=== PATIENT | male | born 1965 | race Caucasian/White ===

== ENCOUNTER 2020-12-17 12:06 | Emergency (ER) | payer OTHER ==
[2020-12-17] MEDS: Diphtheria,Pertussis(Acell),Tetanus Vaccine 0.5 ML Syringe IM ONE (12:23)
[2020-12-17] MEDS: Lidocaine 1% 30 ML SDV INJECT ONE (12:35)
--- NOTE | 2020-12-17 13:48 | EDM.PDOC ---
ED HPI GENERAL MEDICAL PROBLEM - General Stated Complaint: laceration right forearm Time Seen by Provider: 12/17/20 12:10 Source of Information: Reports: Patient, Family, RN, RN Notes Reviewed - History of Present Illness INITIAL COMMENTS - FREE TEXT/NARRATIVE: Patient is a 55-year-old male who presents to ER with complaint of laceration to the right forearm. States he was stepping out of a tool van, stepped down to the first step and states he slipped off of it and fell. States he was wearing a sweatshirt and a jacket. States he was also wearing a hard hat, states he may have bumped his head but does not remember hitting his head and did not get knocked out. Patient denies any pain except for on the right forearm and the left thumb. Patient able to move all appendages well, able to move fingers well no numbness or tingling. Patient is unsure of when his last tetanus vaccination was, states he thinks he probably needs an update. Onset: Today, Sudden ED ROS GENERAL - Review of Systems Review Of Systems: Comprehensive ROS is negative, except as noted in HPI. ED EXAM, SKIN/RASH Exam: See Below Exam Limited By: No Limitations General Appearance: Alert, WD/WN, No Apparent Distress, Anxious Eye Exam: Bilateral Eye: EOMI, Normal Inspection Ears: Normal External Exam, Hearing Loss Nose: Normal Inspection, Normal Mucosa Throat/Mouth: Normal Inspection, Normal Lips, Normal Teeth, Normal Gums, Normal Oropharynx, Normal Voice, No Airway Compromise Head: Atraumatic, Normocephalic Neck: Normal Inspection, Supple, Non-Tender, Full Range of Motion Respiratory/Chest: No Respiratory Distress, Lungs Clear, Normal Breath Sounds, No Accessory Muscle Use, Chest Non-Tender Cardiovascular: Normal Peripheral Pulses, Regular Rate, Rhythm, No Edema, No Gallop, No JVD, No Murmur, No Rub Peripheral Pulses: 2+: Radial (L), Radial (R) GI/Abdominal: Normal Bowel Sounds, Soft, Non-Tender (Male) Exam: Deferred Rectal (Males) Exam: Deferred Back Exam: Normal Inspection, Full Range of Motion, NT Extremities: Normal Inspection, Normal Range of Motion, Non-Tender, No Pedal Edema, Normal Capillary Refill Neurological: Alert, Oriented, CN II-XII Intact, Normal Cognition, Normal Gait, Normal Reflexes, No Motor/Sensory Deficits Psychiatric: Normal Affect, Normal Mood, Anxious Skin: Warm, Dry, Normal Color, No Rash Location, Skin: Upper Extremity, Right, Lower Extremity, Left Lymphatic: No Adenopathy ED SKIN PROCEDURES - Laceration/Wound Repair Right Lateral Distal Arm Appearance: Subcutaneous, Muscle Distal NVT: Neuro & Vascular Intact Anesthetic Type: Local Local Anesthesia - Lidocaine (Xylocaine): 1% Plain Local Anesthetic Volume: Other (17) Skin Prep: Chlorhexidine (Hibiciens) Exploration/Debridement/Repair: Wound Explored, In a Bloodless Field, Explored to Base, No Foreign Material Found, Wound Margins Revised, Multiple Flaps Aligned Closed with: Sutures Lac/Wound length In cm: 17 Suture Size: 4-0 # of Sutures: 20 Suture Type: Nylon, Interrupted Drain Placement: No Sterile Dressing Applied: Nurse Complications: No Left Ventral Digit - 1st (Thumb) Appearance: Subcutaneous Distal NVT: Neuro & Vascular Intact Anesthetic Type: Digital Local Anesthetic Volume: 2cc Skin Prep: Chlorhexidine (Hibiciens) Exploration/Debridement/Repair: Wound Explored, In a Bloodless Field, Explored to Base, No Foreign Material Found Closed with: Sutures Lac/Wound length In cm: 1.5 Suture Size: 4-0 # of Sutures: 3 Suture Type: Nylon, Interrupted Drain Placement: No Sterile Dressing Applied: Nurse Tetanus Status Addressed: Yes Complications: No Course - Orders/Labs/Meds Orders: Active Orders 24 hr Category Date Time Status Vaccines to be Administered [RC] PER UNIT ROUTINE Care 12/17/20 12:20 Active Meds: Medications Discontinued Medications Generic Name Dose Route Start Last Admin Trade Name Freq PRN Reason Stop Dose Admin Diphtheria/Tetanus/Acell Pertussis 0.5 ml 12/17/20 12:19 12/17/20 12:23 Diphtheria,Pertussis(Acell),Tetanus Vaccine 0.5 Ml Syringe IM 12/17/20 12:20 0.5 ml .ONCE ONE Administration Lidocaine HCl 30 ml 12/17/20 12:24 Lidocaine 1% 30 Ml Sdv INJECT 12/17/20 12:25 ONETIME ONE Departure - Departure Time of Disposition: 13:46 Disposition: Home, Self-Care 01 Condition: Good Clinical Impression: Laceration Fall Qualifiers: Encounter type: initial encounter Qualified Code(s): W19.XXXA - Unspecified fall, initial encounter - Discharge Information *PRESCRIPTION DRUG MONITORING PROGRAM REVIEWED*: No *COPY OF PRESCRIPTION DRUG MONITORING REPORT IN PATIENT JOY: No Instructions: Laceration Care, Adult, [id number], Sutured Wound Care, [id number] Referrals: Beni Jaimes PA-C [Primary Care Provider] - Additional Instructions: Keep area covered, clean and dry Follow up in the clinic - 7-10 days to have sutures removed Monitor for signs of infection, i.e. redness, warmth, swelling, drainage, fever, chills May use Tylenol and/or Ibuprofen as directed for pain/fever Return to the ER with any worsening of problems - My Orders Last 24 Hours: My Active Orders 12/17/20 12:20 Vaccines to be Administered [RC] PER UNIT ROUTINE - Assessment/Plan Last 24 Hours: My Active Orders 12/17/20 12:20 Vaccines to be Administered [RC] PER UNIT ROUTINE
== END 2020-12-17 14:05 | disposition home or self-care (01) ==
LOC: VM.ED 12:06
DX: S51.811A Laceration without foreign body of right forearm, initial encounter (principal); Z23 Encounter for immunization; W01.0XXA Fall on same level from slipping, tripping and stumbling without subsequent striking against object, initial encounter
CPT/HCPCS: 12005; 90471; 90715; 99282-25; 99283